=== PATIENT | male | born 1960 | race Caucasian/White ===

== ENCOUNTER 2024-06-22 12:34 | Emergency (ER) | payer OTHER ==
[~2024-06-22] VITALS: Ht 170.2 cm; Wt 80.0 kg
[2024-06-22 12:46] VITALS: O2SAT 98
[2024-06-22 14:05] VITALS: TEMP 37.00296
[2024-06-22 14:13] LABS: CLARITY URINE CLEAR (CLEAR); COLOR URINE YELLOW (YELLOW); GLUCOSE URINE NEGATIVE (NEGATIVE); KETONES URINE TRACE (NEGATIVE); LEUKOCYTE ESTERASE URINE TRACE (NEGATIVE); NITRITE URINE NEGATIVE (NEGATIVE); OCCULT BLOOD URINE 2+ (NEGATIVE); PH URINE 5.5 (4.5-8.0); PROTEIN URINE 1+ (NEGATIVE); SPECIFIC GRAVITY URINE 1.013 (1.005-1.030); UROBILINOGEN URINE 0.2 E.U./dL (0.2-1.0)
[2024-06-22 14:55] LABS: SQUAMOUS EPITHELIAL CELL URINE 1+ /lpf (RARE/1+)
[2024-06-22 14:57] LABS: BACTERIA URINE NONE SEEN; MUCUS URINE TRACE /lpf (NONE/TRACE); YEAST URINE NONE SEEN
[2024-06-22] MEDS ORDERED: TAMS-11 MT (15:41)
[2024-06-22 16:00] VITALS: BP 123/82; PULSE 76; RESP 16; O2SAT 98
== END 2024-06-22 16:59 | disposition home or self-care (01) ==
LOC: ER 12:34
DX: R33.8 Other retention of urine (principal)
CPT/HCPCS: 51702; 81003; 99284